=== PATIENT | male | born 1990 | race Caucasian/White ===

== ENCOUNTER 2017-01-16 09:30 | Emergency (ER) | payer BC ==
[2017-01-16] MEDS ORDERED: LIDOCAINE HCL 20 ML VIAL ONE (10:02)
--- NOTE | 2017-01-16 10:50 | ERNOTE ---
Upper Extremity HPI - Narrative Date of Service: 01/16/17 - General Extremities Pain Location: thumb: right Time Seen by Provider: 01/16/17 09:56 Source: patient Exam Limitations: no limitations - Immun/Allergies/Home Medications Immunizations: IMMUNIZATION HX Immunizations Up to Date Yes History of Influenza Vaccine No Hx Pneumococcal Vaccination No Allergies/Adverse Reactions: Allergies Allergy/AdvReac Type Severity Reaction Status Date / Time No Known Allergies Allergy Unverified 01/16/17 09:55 Home Medications: HOME MEDICATIONS NK [No Home Medication] 01/16/17 [Last Taken Unknown] - History of Present Illness Narrative: patient presents with a laceration to his right thumb. Happened just [employer]. no other injuries. Right handed. Tip of thumb feels numb. dt UTD in last 4 years. Pain at laceration site only. no crush injury or FB. Occurred: just prior to arrival Severity: mild Method of Injury: Reports: other - cut with knofe Modifying Factors - (Improves): Reports: rest Modifying Factors - (Worsens): Reports: other - nothing Associated Symptoms: Denies: weakness Other Injuries: Reports: none Prior Treament: Denies: recently seen Review of Systems - Review of Systems Constitutional: Absent: fever Respiratory: Absent: shortness of breath Cardiology: Absent: chest pain Musculoskeletal: Present: See HPI Neurological: Present: See HPI - Patient's Past Medical History Patient History - Medical: No pertinent hx - Family History Father Family History - Medical: Anemia Mother Family History - Medical: No pertinent hx - Social History Living Situations: spouse Abuse History: No History of abuse Psych History: No pertinent hx Smoking Status: Never smoker Have you smoked in the past 12 months: No Do you dip or chew tobacco: No Alcohol Use: rarely Drug Use: none - Immunizations Immunizations Up to Date: Yes Hx Pneumococcal Vaccination: No History of Influenza Vaccine: No Physical Exam - Physical Exam General Appearance: Present: alert, no apparent distress Head Exam: Present: normal inspection Cardiovascular/Chest: Present: normal peripheral pulses Extremity Exam: Present: other - no nail bed injury or bone tenderness. Full extension and flexion strngth at IP of the thumb. No clear evidence of tenson injury Neurological Exam: Present: no motor/sensory deficits, other - Sensation to LT intact but subjectiove tingling diffuse tip of thumb. Full motor strngth. Skin Exam: Present: other - 2cm thumb laceration. No FB, no evidence of tendon injury with inspection. ED Progress - Vital Signs Patient's Vital Signs:: I have reviewed the patient's vital signs. Vital Signs: Vital Signs 01/16/17 09:49 Temperature 36.1 C L Pulse Rate 64 Respiratory 14 Rate Blood Pressure 132/61 O2 Sat by Pulse 98 Oximetry - Progress/Reassessment Chief Complaint: Hand Injury/Pain Procedures Right Distal 1st Digit Anesthesia: 1% Lidocaine I & D Prep: betadine prep, sterile drapes applied Length of Repair/Wound (cm): 2 Wound's Depth/Shape: into subcutaneous, linear, irregular Wound Explored: clean, to base, in bloodless field, no foreign body Wound Intervention: irrigated w/saline Distal NVT: neuro/vasc intact, no tendon injury Wound Repaired With: sutures Suture Size/Type: 4-0, nylon Number of Sutures: 5 Layer Closure: Simple Wound Dressing: sterile dressing applied, splint applied Complications: Pt jan procedure well Departure Clinical Impression: Finger laceration - Departure Disposition: Home self-care Condition: Stable Instructions: Laceration Care, Adult, [id number] Additional Instructions: Rest. Elevation. Close observation. Recheck with your doctor in 3 days. return here for increased pain, fever, signs of infection, numbness, tingling, weakness or if your condition worsens or changes in any way. Referrals: Joseph Fuentes MD [Primary Care Provider] -
[2017-01-16 11:13] VITALS: BP 107/59
== END 2017-01-16 10:50 | disposition home or self-care (01) ==
LOC: ER 09:30
PROC: 0JQJ0ZZ Repair Right Hand Subcutaneous Tissue and Fascia, Open Approach (ICD-10-PCS; principal; 2017-01-16)
PROC: 2W3GX1Z Immobilization of Right Thumb using Splint (ICD-10-PCS; 2017-01-16)
DX: S61.011A Laceration without foreign body of right thumb without damage to nail, initial encounter (principal)